=== PATIENT | female | born 1995 | race Hispanic/Latino ===

== ENCOUNTER 2019-05-26 22:32 | Emergency (ER) | payer SELFPAY ==
[2019-05-26] MEDS ORDERED: LIDOCAINE 1% MPF 5 ML VIAL ONE (23:30)
--- NOTE | 2019-05-27 00:12 | ER ---
Nurse's Notes [facility] Name: Stephani Rodney Age: 23 yrs Sex: Female : 1995 Arrival Date: 05/26/2019 Time: 22:39 Bed 19 Private MD: Diagnosis: Superficial laceration of base of left thumb Presentation: 05/26 23:11 Presenting complaint: Patient states: that she was washing dishes and the glass broke fc cutting the inner side of her left thumb. Transition of care: patient was not received from another setting of care. Onset of symptoms was May 26, 2019 at 22:35. Risk Assessment: Do you want to hurt yourself or someone else? Patient reports no desire to harm self or others. Initial Sepsis Screen: Does the patient meet any 2 criteria? No. Patient's initial sepsis screen is negative. Does the patient have a suspected source of infection? No. Patient's initial sepsis screen is negative. Care prior to arrival: Bleeding of injury controlled. 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 - Social history:: Smoking status: Patient/guardian denies using tobacco, Patient uses alcohol, occasionally. - Ebola Screening: : Patient negative for fever greater than or equal to 101.5 degrees Fahrenheit, and additional compatible Ebola Virus Disease symptoms Patient denies exposure to infectious person Patient denies travel to an Ebola-affected area in the 21 days before illness onset. - Family history:: not pertinent. - Hospitalizations: : No recent hospitalization is reported. Screenin:14 Abuse screen: Denies threats or abuse. Nutritional screening: No deficits noted. fc Tuberculosis screening: No symptoms or risk factors identified. Fall Risk None identified. Assessment: 23:20 General: Appears in no apparent distress. comfortable, well groomed, well developed, ao well nourished, Behavior is calm, cooperative, appropriate for age. Pain: Complains of pain in left hand. Neuro: Level of Consciousness is awake, alert, obeys commands, Oriented to person, place, time, situation, Appropriate for age Moves all extremities. Full function Speech is normal, Facial symmetry appears normal. Cardiovascular: Capillary refill < 3 seconds. Respiratory: Airway is patent Respiratory effort is even, unlabored, Respiratory pattern is regular, symmetrical. GI: Abdomen is round non-distended. : No deficits noted. No signs and/or symptoms were reported regarding the genitourinary system. EENT: No deficits noted. No signs and/or symptoms were reported regarding the EENT system. Derm: Skin is intact, Skin is pink, warm \T\ dry. Skin temperature is warm Wound noted left hand. Musculoskeletal:. 05/27 00:30 Reassessment: Dc home. Pt agree with POC and to follow up with PCP. ao Vital Signs: 05/26 23:13 BP 122 / 88; Pulse 79; Resp 18; Temp 97.7(O); Pulse Ox 100% on R/A; Weight 81.3 kg (R); fc Height 5 ft. 2 in. (157.48 cm) (R); Pain 4/10; 05/27 00:30 BP 120 / 87; Pulse 72; Resp 16; Temp 98.0(O); Pulse Ox 100% on R/A; ao 05/26 23:13 Body Mass Index 32.78 (81.30 kg, 157.48 cm) ED Course: 05/26 22:39 Patient arrived in ED. es 23:09 Aristeo Doulgas MD is Attending Physician. rn 23:13 Triage completed. fc 23:13 Arm band placed on Patient placed in an exam room, on a stretcher. fc 23:14 Patient has correct armband on for positive identification. Bed in low position. Call light in reach. 23:18 Ray Barcenas, RN is Primary Nurse. ao 23:26 Assist provider with laceration repair on left hand that was 2.5 cm. or less using ao sutures. Set up tray. Performed by Aristeo Doulgas MD Patient tolerated well. 05/27 00:29 Patient did not have IV access during this emergency room visit. ao Administered Medications: 05/26 23:30 Drug: Lidocaine (1 %) 1 amp {Note: By Dr Douglas.} Volume: 5 ml; Route: Infiltration; ao Outcome: 05/27 00:03 Discharge ordered by . rn 00:29 Discharged to home ambulatory. ao 00:29 Condition: stable 00:29 Discharge instructions given to patient, Instructed on discharge instructions, follow up and referral plans. Demonstrated understanding of instructions, follow-up care, medications. 00:31 Patient left the ED. ao Signatures: Janey Faria Felicia, RN RN fc Nieto, Roman, MD MD rn Ortiz, Alex, RN RN ao
--- NOTE | 2019-05-27 00:13 | EDPHYS ---
Physician Documentation [facility] Name: Stephani Rodney Age: 23 yrs Sex: Female : 1995 Arrival Date: 05/26/2019 Time: 22:39 Bed 19 Private MD: ED Physician Aristeo Douglas HPI: 05/26 23:33 This 23 yrs old Female presents to ER via Ambulatory with complaints of rn laceration to thumb. 23:33 The patient or guardian reports a laceration, irregular, clean, 3 cm(s). Context: The rn problem was sustained at home, resulted from broken dish. Onset: The symptoms/episode began/occurred just prior to arrival. Modifying factors: The symptoms are alleviated by nothing, the symptoms are aggravated by movement. Severity of symptoms: At their worst the symptoms were mild, in the emergency department the symptoms are unchanged. The patient has not experienced similar symptoms in the past. Accidentally cut thumb on broken dish, was large piece, does not feel like anything could be in hand. Bleeding stopped since with pressure. . 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 - Social history:: Smoking status: Patient/guardian denies using tobacco, Patient uses alcohol, occasionally. - Ebola Screening: : Patient negative for fever greater than or equal to 101.5 degrees Fahrenheit, and additional compatible Ebola Virus Disease symptoms Patient denies exposure to infectious person Patient denies travel to an Ebola-affected area in the 21 days before illness onset. - Family history:: not pertinent. - Hospitalizations: : No recent hospitalization is reported. ROS: 23:33 Constitutional: Negative for fever, chills, and weight loss, MS/Extremity: + laceration rn to base of left thumb Exam: 23:33 Constitutional: This is a well developed, well nourished patient who is awake, alert, rn and in no acute distress. MS/ Extremity: Pulses equal, no cyanosis. Neurovascular intact. Full, normal range of motion with pain at site of laceration. 3cm irregular laceration to base of thumb, mainly on volar surface but does extend to 1st webspace. Very small amount of bleeding during exam. Able to flex and extend with pain but ROM intact. mild sensory deficit localized to area around laceration. Vital Signs: 23:13 BP 122 / 88; Pulse 79; Resp 18; Temp 97.7(O); Pulse Ox 100% on R/A; Weight 81.3 kg (R); fc Height 5 ft. 2 in. (157.48 cm) (R); Pain 4/10; 05/27 00:30 BP 120 / 87; Pulse 72; Resp 16; Temp 98.0(O); Pulse Ox 100% on R/A; ao 05/26 23:13 Body Mass Index 32.78 (81.30 kg, 157.48 cm) fc Laceration: 05/26 23:59 Wound Repair of 3cm ( 1.2in ) subcutaneous laceration to left hand. Distal rn neuro/vascular/tendon intact. Anesthesia: Wound infiltrated with 3 mls of 1% lidocaine. Wound prep: Extensive cleansing by nurse, Wound irrigation by nurse, Wound explored extensively. Skin closed with 5 4-0 Prolene using interrupted sutures and sterile technique. Dressed with Neosporin. Patient tolerated well. MDM: 23:09 Patient medically screened. rn 23:59 Differential diagnosis: laceration. Data reviewed: vital signs, nurses notes, and as a rn result, I will discharge patient. Counseling: I had a detailed discussion with the patient and/or guardian regarding: the historical points, exam findings, and any diagnostic results supporting the discharge/admit diagnosis, the need for outpatient follow up, to return to the emergency department if symptoms worsen or persist or if there are any questions or concerns that arise at home. Special discussion: I discussed with the patient/guardian in detail that at this point there is no indication for admission to the hospital. It is understood, however, that if the symptoms persist or worsen the patient needs to return immediately for re-evaluation. 05/26 23:15 Order name: Suture Tray at Bedside; Complete Time: 23:19 rn 05/26 23:15 Order name: Sutures, Prolene; Complete Time: 00:12 rn 05/26 23:15 Order name: Wound Care; Complete Time: 23:47 rn 05/26 23:15 Order name: Wound dressing; Complete Time: 00:12 rn Administered Medications: 23:30 Drug: Lidocaine (1 %) 1 amp {Note: By Dr Douglas.} Volume: 5 ml; Route: Infiltration; ao Disposition: 05/27/19 00:03 Discharged to Home. Impression: Superficial laceration of base of left thumb. - Condition is Stable. - Discharge Instructions: Laceration Care, Adult. - Medication Reconciliation Form, Thank You Letter, Antibiotic Education, Prescription Opioid Use form. - Follow up: Emergency Department; When: 2 weeks; Reason: Wound Recheck, Staple/Suture removal. - Problem is new. - Symptoms have improved. Signatures: Pattie Rowley RN RN fc Nieto, Roman, MD MD rn Ortiz, Alex, RN RN ao Corrections: (The following items were deleted from the chart) 05/27 00:31 00:03 05/27/2019 00:03 Discharged to Home. Impression: Superficial laceration of base ao of left thumb. Condition is Stable. Forms are Medication Reconciliation Form, Thank You Letter, Antibiotic Education, Prescription Opioid Use. Follow up: Emergency Department; When: 2 weeks; Reason: Wound Recheck, Staple/Suture removal. Problem is new. Symptoms have improved. rn
== END 2019-05-27 00:31 | disposition home or self-care (01) ==
LOC: ER 22:32
PROC: 0JQK0ZZ Repair Left Hand Subcutaneous Tissue and Fascia, Open Approach (ICD-10-PCS; principal; 2019-05-27)
DX: S61.012A Laceration without foreign body of left thumb without damage to nail, initial encounter (principal); W45.8XXA Other foreign body or object entering through skin, initial encounter; Y93.9 Activity, unspecified; Y92.009 Unspecified place in unspecified non-institutional (private) residence as the place of occurrence of the external cause
CPT/HCPCS: 99283